=== PATIENT | male | born 1975 | race Caucasian/White ===

== ENCOUNTER 2022-04-27 20:19 | Emergency (ER) | payer OTHER ==
[~2022-04-27] VITALS: Ht 154.9 cm; Wt 47.6 kg
--- NOTE | 2022-04-27 20:30 | NUR ---
[facility] FOR OTB, NEEDS COVID TEST. NO MEDICAL COPMPLAINT AT THIS TIME. PT IS ALERT AND ORIENTED. RR EVEN AND NONLABORED. CONNECTED TO MONITOR, AWAITING MD SHARP
--- NOTE | 2022-04-27 20:32 | NUR ---
covid swab collected and sent to lab.
[2022-04-27] MEDS ORDERED: risperiDONE 0.25 MG TABLET PO ONE (21:00)
[2022-04-27] MEDS ORDERED: ESCITALOPRAM OXALATE (10 MG) 10 MG TABLET PO ONE (21:00)
[2022-04-27] MEDS ORDERED: ESCITALOPRAM OXALATE (10 MG) 10 MG TABLET ONE (21:13)
[2022-04-27] MEDS ORDERED: risperiDONE 1 MG TABLET ONE (21:14)
--- NOTE | 2022-04-27 21:52 | NUR ---
PT IS MED CLEARED FOR BOOKING. COVID NEG
[2022-04-27 21:53] VITALS: BP 121/84
== END 2022-04-27 21:53 ==
LOC: ER 20:30
DX: Z02.89 Encounter for other administrative examinations (principal); R09.89 Other specified symptoms and signs involving the circulatory and respiratory systems; Z20.822 Contact with and (suspected) exposure to COVID-19; Z59.00 Homelessness unspecified; F10.20 Alcohol dependence, uncomplicated; F20.9 Schizophrenia, unspecified; F43.10 Post-traumatic stress disorder, unspecified; F41.9 Anxiety disorder, unspecified
CPT/HCPCS: 99283; 87426; C9803